=== PATIENT | male | born 1995 | race Caucasian/White ===

== ENCOUNTER 2024-06-13 10:31 | Emergency (ER) | payer BC ==
[~2024-06-13] VITALS: Ht 180.3 cm; Wt 153.8 kg
[2024-06-13 10:52] VITALS: BP 123/91; PULSE 80; RESP 18; TEMP 97.4; O2SAT 96
[2024-06-13] MEDS ORDERED: MIRABULK PO (11:55)
[2024-06-13] MEDS ORDERED: MAGN296S70 PO (11:55)
[2024-06-13] MEDS ORDERED: ONDA-188 SL (11:56)
== END 2024-06-13 12:09 | disposition home or self-care (01) ==
LOC: MED 10:31
DX: K59.00 Constipation, unspecified (principal); R11.0 Nausea; Z79.899 Other long term (current) drug therapy
CPT/HCPCS: 74021; 99283